=== PATIENT | female | born 1990 | race Caucasian/White ===

== ENCOUNTER → 2016-12-20 | Outpatient (CLI) | payer OTHER ==
[2016-05-12 21:30] VITALS: BP 124/64
[~2016-12-20] MED LIST: ACET500T33 PO; ALBU8.5H6 INH; GI COCKTAIL PO; HYDR-2666 PO; HYDR-2672 PO; HYDR-2678 PO; HYDR10TA2 PO; HYDR1TAB10 PO; IBUP-1007 PO; IBUP100O7 PO; IBUP200T77 PO; LEVO25TA4 PO; LEVO75TA5 PO; LEVO88TA4 PO; ONDA4TAB10 SL; ONDA4TAB7 PO; OXYC-244 PO; OXYC-323 PO; PANT40TA5 PO; PREN1TAB9 PO
--- NOTE | 2016-12-20 14:12 | KCIC ---
PROCEDURE Pelvic ultrasound dated 12/20/2016. HISTORY Pelvic pain. TECHNIQUE Transabdominal and transvaginal imaging performed. COMPARISON 09/02/2014. FINDINGS Uterus is surgically absent. No abnormality of the vaginal cuff. Right ovary measures 3.2 x 1.5 x 1.7 centimeter. There is a complex nodule at the right ovary with increased vascularity measuring 1.2 centimeter maximum dimension. There is also a simple appearing cyst that measures 1.5 centimeter maximum dimension. The left ovary is not identified and reportedly surgically absent. No free fluid. IMPRESSION - Complex cyst or mass at the right ovary measuring up to 1.2 centimeters in size, indeterminate. Follow up imaging may be warranted to ensure stability. - Additional collapsing cyst at the right ovary measuring 1.5 centimeters in size. - Status post hysterectomy and left oophorectomy. Electronically signed by: Nazario Sanchez (Dec 20, 2016 14:10:41)
== END | disposition home or self-care (01) ==
LOC: KCIC US 10:16
PROVIDERS: ATTEND Obstetrics & Gynecology
DX: N83.201 Unspecified ovarian cyst, right side (principal); Z90.710 Acquired absence of both cervix and uterus
CPT/HCPCS: 76830; 76856

== ENCOUNTER 2017-01-08 09:31 | Day surgery (SDC) | payer OTHER ==
[~2017-01-08] VITALS: Ht 157.5 cm; Wt 90.7 kg
[~2017-01-08 09:31] MED LIST changes: +BUPIVACAINE-EPI 0.25%-1:200000 MPF 30 ML VIAL. ONE; +DEXAMETHASONE SOD PHOS 20 MG/5 ML VIAL. ONE; +IV RINGERS,LACTATED 1000ML 1,000 ML IV SCH; +LIDOCAINE 1% 1 ML SYRINGE. ID PRN; +LIDOCAINE 2% 100 MG/5 ML SYRINGE. ONE; +MIDAZOLAM HCL/PF 2 MG/2 ML VIAL. ONE; +ONDANSETRON PF 4 MG/2 ML VIAL. IV PRN; +ONDANSETRON PF 4 MG/2 ML VIAL. ONE; +PROPOFOL 20 ML IV ONE; +ROCURONIUM 100 MG/10 ML VIAL. ONE; +SEVOFLURANE 61 TO 120 MINUTES. IH ONE; +SURGICEL HEMOSTAT 4X8 EACH. ONE; +fentaNYL PF VIAL 100 MCG/2 ML VIAL ONE
[2017-01-08] MEDS ORDERED: LIDOCAINE 2% 100 MG/5 ML SYRINGE. ONE (10:46)
[2017-01-08] MEDS ORDERED: GLYCOPYRROLATE 1 MG/5 ML VIAL. ONE (10:46)
[2017-01-08] MEDS ORDERED: NEOSTIGMINE METHYLSULFATE 5 MG/5 ML SYRINGE. ONE (10:46)
[2017-01-08] MEDS ORDERED: PHENYLEPHRINE in 0.9% NACL PF 1 MG/10 ML DISP.SYRIN. IV ONE (10:57)
--- NOTE | 2017-01-08 11:20 | PDOC ---
BRIEF OPERATIVE NOTE Pre-Op Diagnosis 1. Left adnexal mass 2. Chronic Pelvic pain Post-Op Diagnosis 1. ROV Cyst 2. Endometriosis Procedure Performed [facility] RSO and Resection of Endometriosis Surgeon Dr. Michaels Anesthesia Type: General Blood Loss 5 ml Specimens Obtained Right ovary and fallopian tube; Peritoneum biopsy of posterior culde sac Findings pelvic sidewall adhesions, ROV cyst, endometriosis posterior culde sac Complications none Additional Remarks pt. stable JESSICA MICHAELS Jr, MD January 08, 2017 11:20
--- NOTE | 2017-01-08 11:21 | DISCH ---
DISCHARGE INSTRUCTIONS Condition on Discharge Condition on Discharge: Stable Activity After Discharge Activity Instructions for Disc: Activity as tolerated Lifting Instructions after Dis: No heavy lifting Driving Instructions after Dis: Do not drive today Diet after Discharge Diet after Discharge: Regular Contacting the DRChad after DC Call your doctor for: Concerns you may have Follow-Up Follow up with: Dr. Michaels in 1 week. JESSICA MICHAELS Jr, MD January 08, 2017 11:21
[2017-01-08] MEDS ORDERED: OXYC-244 PO (11:29)
[2017-01-08] MEDS ORDERED: oxyCODONE/APAP 7.5/325 1 TAB TABLET PO ONE ×3 (11:45→12:30)
[2017-01-08] MEDS: fentaNYL PF VIAL 100 MCG/2 ML VIAL IV PRN ×4 (12:08→12:38)
[2017-01-08] MEDS: MORPHINE SULFATE 2 MG/ML DISP.SYRIN. IV PRN ×2 (12:08→12:16)
--- NOTE | 2017-01-08 12:24 | OP ---
DATE OF SURGERY: 01/08/2017 PREOPERATIVE DIAGNOSES: 1. Left adnexal mass. 2. Chronic pelvic pain. POSTOPERATIVE DIAGNOSES: 1. Right ovarian cyst. 2. Endometriosis. PROCEDURES: Laparoscopic right salpingo-oophorectomy and resection of endometriosis. SURGEON: Hi Michaels M.D. ANESTHESIA: GETA. ESTIMATED BLOOD LOSS: 5 mL. COMPLICATIONS: None. FINDINGS: 1. Right ovarian cyst. 2. Pelvic sidewall adhesions. 3. Endometriosis in the posterior cul-de-sac. SUMMARY: A 26-year-old female with history of chronic pelvic pain and sonogram indicated a left adnexal mass. The patient was counseled on risks, benefits, and expectations of performing laparoscopic right salpingo-oophorectomy and voiced clear understanding to proceed. DESCRIPTION OF PROCEDURE: The patient was taken to surgery suite and placed in dorsal lithotomy position. She was prepped with Betadine for vaginal prep and ChloraPrep for abdominal prep. After adequate anesthesia, moist sponge stick was placed vaginally. The abdomen was then visualized. Small transverse skin incision was made just below the umbilicus. The Veress needle was then placed through the infraumbilical incision site. The abdomen was allowed to insufflate up to 1-1/2 liters CO2 gas. The Veress needle was then removed, 5-mm trocar was placed. The scope was positioned. There were multiple pelvic sidewall adhesions, right ovary had a complex cyst of about 3 cm size, and left pelvic sidewall indicated more adhesions. Two incisions made in the left lower quadrant, at which a 5 mm and 11 mm port were placed with aid of graspers. The left pelvic area, where the adnexal mass was seen, a sonogram was evaluated and explored and appeared to have multiple adhesions, which were removed. There were other pelvic sidewall adhesions of the posterior cuff that were removed. There was an area of endometriosis on the posterior cul-de-sac, which was excised with the aid of EnSeal device. The right ovary and fallopian tube were then excised using the EnSeal device. Good hemostasis was maintained. A small amount of normal saline was left in the posterior cul-de-sac. The specimen was removed through the Endobag. The trocars were then removed under direct visualization. Abdomen was allowed to deflate as much as possible along with mechanical manipulation. The 11 mm port was reapproximated at the fascial layer using 2-0 Vicryl suture in a [id number] manner. The three skin incisions were reapproximated with 4-0 Vicryl suture in subcuticular manner. 0.25% Marcaine with epinephrine was injected at each incision site. The patient tolerated the procedure well. The moist sponge stick was removed. She was taken to recovery room in stable condition. Sponge and needle counts correct x 3. HI MICHAELS MD DR: SOPHIA/yaquelin JOB#: [id number] / [id number]
[2017-01-08] MEDS ORDERED: HYDROmorphone 2 MG/ML VIAL ONE (12:31)
[2017-01-08] MEDS: HYDROmorphone 2 MG/ML VIAL IV PRN ×3 (12:35→12:55)
[2017-01-08 13:10] VITALS: BP 122/74
--- NOTE | 2017-01-10 13:13 | PATHOLOGY ---
PATHOLOGY REPORT * * * * * * * * FINAL DIAGNOSIS: A. Fibroadipose tissue, peritoneal biopsy: - Focal fibrosis and coagulative changes. B. Ovary, right oophorectomy: - Cystic follicle with regressive changes and organizing hemorrhagic cyst. COMMENT: Sections of the peritoneal biopsy show focal fibrosis and coagulative changes. There is no evidence of endometriosis or malignancy. Sections of the ovary reveal a cystic follicle with regressive changes and organizing hemorrhagic cyst. There is no evidence of malignancy. No fallopian tube is identified. (JPM:; d/t: 01/10/17) REPORT ELECTRONICALLY SIGNED BY: Ugo Booth M.D. DATE/TIME: 01/10/2017 13:12 * * * * * * * * GROSS PATHOLOGY: A. The specimen is received in formalin labeled "Kameron Merlos, peritoneal biopsy". Received is a segment of pale restrepo, glistening to partially cauterized soft tissue measuring 0.8 x 0.6 x 0.4 cm in greatest dimensions. The specimen is submitted entirely in cassette A1. B. The specimen is received in formalin labeled "Kameron Merlos, right fallopian tube and ovary". Received is a 3 g ovary measuring 2.5 x 1.7 x 1.3 cm in greatest dimensions. The fallopian tube is not grossly identified. Sectioning reveals a unilocular cystic structure measuring 0.7 cm filled with blood coagulum. Remaining cut surfaces display pale restrepo, normal ovarian stroma. The specimen is submitted representatively in cassette B1. (CAA; 01/09/2017) INITIAL CPT CODE(S): A; 61052, 91558 Professional services performed by [facility] at [address] [address] Technical services performed by [facility] at [address] [place] [address], [facility] [address] [address]. SPECIMEN(S) RECEIVED: A.Peritoneal biopsy, posterior cul de sac B.Right tube and ovary CLINICAL HISTORY: Left adnexal mass PATIENT: KAMERON MERLOS /AGE: 5 1990 (Age: 26) PATIENT #: [id number] ALT CASE #: SPECIMEN COLLECTION DATE: 01/08/2017 SPECIMEN RECEIVED DATE: 01/08/2017 [facility] - [address] [place] [address] - PHONE: [phone] * * * END OF REPORT * * *
== END 2017-01-08 13:55 | disposition home or self-care (01) ==
LOC: SURG 09:31
PROVIDERS: ATTEND Obstetrics & Gynecology
DX: N83.291 Other ovarian cyst, right side (principal); N80.9 Endometriosis, unspecified; N73.6 Female pelvic peritoneal adhesions (postinfective); E78.00 Pure hypercholesterolemia, unspecified; J45.909 Unspecified asthma, uncomplicated; E66.9 Obesity, unspecified; Z90.49 Acquired absence of other specified parts of digestive tract; E03.9 Hypothyroidism, unspecified; F41.9 Anxiety disorder, unspecified; F32.9 Major depressive disorder, single episode, unspecified
CPT/HCPCS: 58661; 58662; 88305; A4215; C1782; J1100; J1170; J2060; J2250; J2270; J2370; J2405; J2704; J2710; J3010; J3490; J7030; J7120

== ENCOUNTER 2017-03-23 15:14 | Inpatient (IN) | payer OTHER ==
[~2017-03-23] VITALS: Ht 160 cm; Wt 90.7 kg
[~2017-03-23 15:14] MED LIST changes: -BUPIVACAINE-EPI 0.25%-1:200000 MPF 30 ML VIAL. ONE; -DEXAMETHASONE SOD PHOS 20 MG/5 ML VIAL. ONE; -HYDR-2666 PO; -HYDR-2672 PO; +HYDR-2758 PO; +HYDR-2766 PO; +IBUP100O24 PO; -IBUP100O7 PO; -IV RINGERS,LACTATED 1000ML 1,000 ML IV SCH; -LIDOCAINE 1% 1 ML SYRINGE. ID PRN; -LIDOCAINE 2% 100 MG/5 ML SYRINGE. ONE; -MIDAZOLAM HCL/PF 2 MG/2 ML VIAL. ONE; -ONDANSETRON PF 4 MG/2 ML VIAL. IV PRN; -ONDANSETRON PF 4 MG/2 ML VIAL. ONE; -OXYC-244 PO; +OXYC-327 PO; -PROPOFOL 20 ML IV ONE; -ROCURONIUM 100 MG/10 ML VIAL. ONE; -SEVOFLURANE 61 TO 120 MINUTES. IH ONE; -SURGICEL HEMOSTAT 4X8 EACH. ONE; -fentaNYL PF VIAL 100 MCG/2 ML VIAL ONE
[2017-03-23] MEDS ORDERED: ONDANSETRON PF 4 MG/2 ML VIAL. IV ONE (15:30)
[2017-03-23] MEDS ORDERED: 0.9 % SODIUM CHLORIDE 10 ML DISP.SYRIN. IV PRN (15:30)
[2017-03-23] MEDS ORDERED: IV NORMAL SALINE 1000ML BAG 1,000 ML IV SCH (15:30)
--- NOTE | 2017-03-23 15:38 | PHYS DOC ---
Past Medical History Past Medical History: Anxiety, Hypothyroid, Ovarian Cyst, Other Additional Past Medical Histor: " pelvic congestion" GERD Past Surgical History: Cholecystectomy, Hysterectomy, Oophorectomy Additional Past Surgical Histo: laparoscopy, NUMEROUS SURGERIES FOR OVARION CYSTS Alcohol Use: None Drug Use: None Adult General Chief Complaint Chief Complaint: ABDOMINAL PAIN HPI HPI This is a pleasant 27-year-old patient female who was seen at a [facility] yesterday in the ER she presented to the ER with increasing left lower quadrant abdominal pain. Patient has had a history of surgery to remove a cystic structure from her left Ovary by her CLIENT SERVICE MANAGER back in January 2017 patient been doing well until that time until 2 days ago she began having increasing "abdominal pain described as sharp and stabbing with radiation to the left flank. It is full and full of pressure causing some nausea and vomiting nonbilious nonbloody to me times to count. Patient describes no diarrhea, no UTI symptoms no vaginal bleeding or discharge. She does localized tenderness that is worse with direct pressure. She 's had some subjective fevers and chills with the symptoms. When she was seen at [facility] she complained of increased pain they can't completed a CAT scan of abdomen and pelvis. This demonstrated a significant cystic mass larger in size in the left lower quadrant. They advised her to follow-up with her OB/ DRY MAN in the next day for surgical evaluation. [facility] Review of Systems Review of Systems Constitutional: He describes some fevers and chills although thing measured. Eyes: Denies change in visual acuity, redness, or eye pain [] HENT: Denies nasal congestion or sore throat [] Respiratory: Denies cough or shortness of breath [] Cardiovascular: No additional information not addressed in HPI [] GI: Planes of left lower quadrant abdominal pain with nausea and vomiting with blood or bile, no bloody stools no constipation. : Denies dysuria or hematuria [] Musculoskeletal: Denies back pain or joint pain [] Integument: Denies rash or skin lesions [] Neurologic: Denies headache, focal weakness or sensory changes [] Endocrine: Denies polyuria or polydipsia [] Current Medications Current Medications Current Medications Medications (Trade) Dose Ordered Sig/Nargis Start Time Stop Time Status Last Admin Dose Admin Fentanyl Citrate (Fentanyl 2ml Vial) 50 mcg PRN Q2HR PRN 03/23/17 17:30 03/24/17 17:29 UNV Hydromorphone HCl (Dilaudid) 1 mg PRN Q15MIN PRN 03/23/17 15:30 03/24/17 15:29 03/23/17 16:53 1 MG Ondansetron HCl (Zofran) 4 mg PRN Q8HRS PRN 03/23/17 17:30 03/24/17 17:29 UNV Sodium Chloride 1,000 ml @ 100 mls/hr Q10H 03/23/17 17:22 03/24/17 17:21 UNV Sodium Chloride (Normal Saline Flush) 10 ml QSHIFT PRN 03/23/17 15:30 03/23/17 15:58 10 ML Allergies Allergies Allergies Coded Allergies Type Severity Reaction Last Updated Verified Iodine and Iodide Containing Produc Allergy Severe THROAT CLOSED UP 01/08/17 Yes Latex, Natural Rubber Allergy Intermediate RASH AND ITCHING 01/08/17 Yes adhesive Allergy Intermediate Rash FROM TAPE 01/08/17 Yes ketorolac Allergy Intermediate Itching 01/08/17 Yes tramadol Allergy Intermediate itchy rash, tolerates Morphine/Dilaudid/Lortab Yes cyclobenzaprine Adverse Reaction Mild IRRITABLE 01/08/17 Yes promethazine Adverse Reaction Mild fast heart rate 01/08/17 No Physical Exam Physical Exam Patient's vital signs within normal limits. Constitutional: Well developed, well nourished, patient is obese she is sent comfortable HENT: Normocephalic, atraumatic, bilateral external ears normal, oropharynx moist, no oral exudates, nose normal. [] Eyes: PERRLA, EOMI, conjunctiva normal, no discharge. [] Neck: Normal range of motion, no tenderness, supple, no stridor. [] Cardiovascular:Heart rate regular rhythm, no murmur [] Lungs & Thorax: Bilateral breath sounds clear to auscultation [] Abdomen: He has marked tenderness to palpation left lower quadrant with some fullness with voluntary guarding no rebound or organomegaly. Patient has no rebound or organomegaly. Skin: Warm, dry, no erythema, no rash. [] Back: No tenderness, no CVA tenderness. [] Extremities: No tenderness, no cyanosis, no clubbing, ROM intact, no edema. [] Neurologic: Alert and oriented X 3, normal motor function, normal sensory function, no focal deficits noted. [] Psychologic: Patient is mildly anxious but obviously in pain. Current Patient Data Vital Signs Vital Signs Date Time Temp Pulse Resp B/P (MAP) Pulse Ox O2 Delivery O2 Flow Rate FiO2 03/23/17 16:53 Room Air 03/23/17 16:31 69 107/61 (76) 97 03/23/17 15:20 98.4 18 98.4 Lab Values Laboratory Tests Test 03/23/17 14:46 03/23/17 15:30 03/23/17 15:50 POC Urine HCG, Qualitative Hcg negative (Negative) Urine Collection Type Unknown Urine Color Yellow Urine Clarity Clear Urine pH 7.0 Urine Specific [place] 1.020 Urine Protein Negative mg/dL (NEG-TRACE) Urine Glucose (UA) Negative mg/dL (NEG) Urine Ketones (Stick) Negative mg/dL (NEG) Urine Blood Negative (NEG) Urine Nitrite Negative (NEG) Urine Bilirubin Negative (NEG) Urine Urobilinogen Dipstick 0.2 mg/dL (0.2 mg/dL) Urine Leukocyte Esterase Negative (NEG) Urine RBC 0 /HPF (0-2) Urine WBC Occ /HPF (0-4) Urine Squamous Epithelial Cells Few /LPF Urine Bacteria 0 /HPF (0-FEW) Urine Mucus Mod /LPF White Blood Count 15.7 x10^3/uL (4.0-11.0) H Red Blood Count 4.61 x10^6/uL (3.50-5.40) Hemoglobin 13.4 g/dL (12.0-15.5) Hematocrit 40.7 % (36.0-47.0) Mean Corpuscular Volume 88 fL (79-100) Mean Corpuscular Hemoglobin 29 pg (25-35) Mean Corpuscular Hemoglobin Concent 33 g/dL (31-37) Red Cell Distribution Width 13.1 % (11.5-14.5) Platelet Count 329 x10^3/uL (140-400) Neutrophils (%) (Auto) 80 % (31-73) H Lymphocytes (%) (Auto) 12 % (24-48) L Monocytes (%) (Auto) 6 % (0-9) Eosinophils (%) (Auto) 1 % (0-3) Basophils (%) (Auto) 0 % (0-3) Neutrophils # (Auto) 12.6 x10^3uL (1.8-7.7) H Lymphocytes # (Auto) 1.9 x10^3/uL (1.0-4.8) Monocytes # (Auto) 1.0 x10^3/uL (0.0-1.1) Eosinophils # (Auto) 0.2 x10^3/uL (0.0-0.7) Basophils # (Auto) 0.1 x10^3/uL (0.0-0.2) Segmented Neutrophils % 79 % (35-66) H Lymphocytes % 11 % (24-48) L Monocytes % 9 % (0-10) Eosinophils % 1 % (0-5) Platelet Estimate Adequate (ADEQUATE) Sodium Level 144 mmol/L (136-145) Potassium Level 3.9 mmol/L (3.5-5.1) Chloride Level 105 mmol/L (98-107) Carbon Dioxide Level 29 mmol/L (21-32) Anion Gap 10 (6-14) Blood Urea Nitrogen 15 mg/dL (7-20) Creatinine 1.0 mg/dL (0.6-1.0) Estimated GFR (Cockcroft-Gault) 65.6 BUN/Creatinine Ratio 15 (6-20) Glucose Level 104 mg/dL (70-99) H Lactic Acid Level 1.1 mmol/L (0.4-2.0) Calcium Level 8.7 mg/dL (8.5-10.1) Total Bilirubin 0.4 mg/dL (0.2-1.0) Aspartate Amino Transferase (AST) 20 U/L (15-37) Alanine Aminotransferase (ALT) 29 U/L (14-59) Alkaline Phosphatase 72 U/L (46-116) Total Protein 7.8 g/dL (6.4-8.2) Albumin 3.9 g/dL (3.4-5.0) Albumin/Globulin Ratio 1.0 (1.0-1.7) Lipase 110 U/L (73-393) Laboratory Tests 03/23/17 15:50 Laboratory Tests 03/23/17 15:50 EKG EKG [] KG timed 3 6:57 PM 03/23/2017 demonstrates normal sinus rhythm with heart rate of 86 UT interval is normal in 1:30. QRS normal at 76. QTc is normal at 427. This is a normal EKG a mild left axis deviation no other abnormalities read by Dr. Sherman. Radiology/Procedures Radiology/Procedures [] CT scan completed at [facility] on 03/23/2017 demonstrates there is left hydroureter again seen is a left pelvic mass measuring 4.3 x 3.8 cm this is increased in size from the prior study in cause compression of the left ureter dizzy of the masses indeterminate range from anywhere from 12-20 Hounsfield units dizzy of the mass no bowel obstruction no. Pneumoperitoneum normal appendix no bulky adenopathy. This is a left adnexal mass is increased in size placing mass effect on the left ureter causing left hydroureter nephrosis. Course & Med Decision Making Course & Med Decision Making Pertinent Labs and Imaging studies reviewed. (See chart for details) arrival patient with left lower quadrant abdominal pain and a cystic mass found on CT scan from a CAT scan yesterday at assisted facility. We will attempt to get those results and Dr. CLIENT SERVICE MANAGER Dr. Michaels ammonia distiller, will attempt to her comfortable while we ensure that she is not today her urine is clear she will do CBC, urinalysis and CMP completed. She will receive IV fluids and pain medications. Returned CT of the pelvis completed early reviewed results at approximately 4: 15 PM Is now 4:50 PM blood cell count is returned elevated at 15,000, a negative test, negative urinalysis Is now 4:55 PM Patient tells me that their symptoms given during CC are improved. We reviewed labs and radiology reports with patient. Laboratory Tests Test 03/23/17 14:46 03/23/17 15:30 03/23/17 15:50 Bedside Urine HCG, Qualitative Hcg negative (Negative) Urine Collection Type Unknown Urine Color Yellow Urine Clarity Clear Urine pH 7.0 Urine Specific [place] 1.020 Urine Protein Negative mg/dL (NEG-TRACE) Urine Glucose (UA) Negative mg/dL (NEG) Urine Ketones (Stick) Negative mg/dL (NEG) Urine Blood Negative (NEG) Urine Nitrite Negative (NEG) Urine Bilirubin Negative (NEG) Urine Urobilinogen Dipstick 0.2 mg/dL (0.2 mg/dL) Urine Leukocyte Esterase Negative (NEG) Urine RBC 0 /HPF (0-2) Urine WBC Occ /HPF (0-4) Urine Squamous Epithelial Cells Few /LPF Urine Bacteria 0 /HPF (0-FEW) Urine Mucus Mod /LPF White Blood Count 15.7 x10^3/uL (4.0-11.0) Red Blood Count 4.61 x10^6/uL (3.50-5.40) Hemoglobin 13.4 g/dL (12.0-15.5) Hematocrit 40.7 % (36.0-47.0) Mean Corpuscular Volume 88 fL (79-100) Mean Corpuscular Hemoglobin 29 pg (25-35) Mean Corpuscular Hemoglobin Concent 33 g/dL (31-37) Red Cell Distribution Width 13.1 % (11.5-14.5) Platelet Count 329 x10^3/uL (140-400) Neutrophils (%) (Auto) 80 % (31-73) Lymphocytes (%) (Auto) 12 % (24-48) Monocytes (%) (Auto) 6 % (0-9) Eosinophils (%) (Auto) 1 % (0-3) Basophils (%) (Auto) 0 % (0-3) Neutrophils # (Auto) 12.6 x10^3uL (1.8-7.7) Lymphocytes # (Auto) 1.9 x10^3/uL (1.0-4.8) Monocytes # (Auto) 1.0 x10^3/uL (0.0-1.1) Eosinophils # (Auto) 0.2 x10^3/uL (0.0-0.7) Basophils # (Auto) 0.1 x10^3/uL (0.0-0.2) Segmented Neutrophils % 79 % (35-66) Lymphocytes % 11 % (24-48) Monocytes % 9 % (0-10) Eosinophils % 1 % (0-5) Platelet Estimate Adequate (ADEQUATE) Sodium Level 144 mmol/L (136-145) Chloride Level 105 mmol/L (98-107) Carbon Dioxide Level 29 mmol/L (21-32) Anion Gap 10 (6-14) Blood Urea Nitrogen 15 mg/dL (7-20) Estimated GFR (Cockcroft-Gault) 65.6 BUN/Creatinine Ratio 15 (6-20) Glucose Level 104 mg/dL (70-99) Lactic Acid Level 1.1 mmol/L (0.4-2.0) Calcium Level 8.7 mg/dL (8.5-10.1) Total Bilirubin 0.4 mg/dL (0.2-1.0) Aspartate Amino Transf (AST/SGOT) 20 U/L (15-37) Alkaline Phosphatase 72 U/L (46-116) Total Protein 7.8 g/dL (6.4-8.2) Albumin 3.9 g/dL (3.4-5.0) Albumin/Globulin Ratio 1.0 (1.0-1.7) Lipase 110 U/L (73-393) [] My consult note: called OB at 4:55 pm returned call at 4:[address] Michaels he and I discussed the case with me and he was adamant that he did remove the tube and ovary on the left side and that this should not be an adnexal mass. The differential diagnosis still at includes but not limited to an abscess, ovarian mass or perhaps retained foreign body. He advised that I talked to general surgery about this patient case and get their opinion about the matter. Sales Officer note: Gen. investigative analyst called at of the service service: 5 PM Consult called back at 5:02 pm Discussed the case I presented and they agreed with admission. he asked for Dr. Michaels to call him so that they could discuss this case. Dr. Bob called back at 5:10 and encouraged me to admit this patient to the hospitalist group and that he and Dr. Michaels would would out a good treatment plan for this patient. Sales Officer note: internal medicine Dr. Glynn Sales Officer called at of the service 5:18 pm Consult called back at 5:25 pm Discussed the case I presented and they agreed with admission. Time of acceptance 5:25 Discussed plan with family at the bedside. She is feeling markedly better with the IV fluids pain medications at this time and she understands she'll be admitted to the hospital to be evaluated by general surgery and possibly CLIENT SERVICE MANAGER to determine the past related to evaluate this particular cystic mass within her pelvis is causing her pain, fevers and increased white count. Dragon Disclaimer Dragon Disclaimer This electronic medical record was generated, in whole or in part, using a voice recognition dictation system. Departure Departure Impression: Primary Impression: Abdominal pain, left lower quadrant Additional Impressions: Intraabdominal mass Leukocytosis Disposition: 09 ADMITTED INPATIENT Admitting Physician: Other Condition: GUARDED Referrals: COURTNEY PAULA MD (PCP) Problem Qualifiers PATRICIA SHERMAN MD Mar 23, 2017 15:38
[2017-03-23 15:48] LABS: BILIRUBIN,URINE NEGATIVE (NEG); GLUCOSE,URINE NEGATIVE (NEG); NITRITE,URINE NEGATIVE (NEG); PROTEIN,URINE NEGATIVE (NEG-TRACE); UROBILINOGEN,URINE 0.2 mg/dL (0.2 mg/dL)
[2017-03-23] MEDS: HYDROmorphone 2 MG/ML VIAL IV/SQ PRN ×5 (15:59→21:55)
[2017-03-23 16:04] LABS: BASO # 0.1 x10^3/uL (0.0-0.2); BASO % 0 % (0-3); EOS % 1 % (0-3); HEMATOCRIT 40.7 % (36.0-47.0); HEMOGLOBIN 13.4 g/dL (12.0-15.5); LYMPH # 1.9 x10^3/uL (1.0-4.8); LYMPH % 12 % (24-48); MEAN CORPUSCULAR HEMOGLOBIN 29 pg (25-35); MEAN CORPUSCULAR HGB CONC 33 g/dL (31-37); MEAN CORPUSCULAR VOLUME 88 fL (79-100); MONO % 6 % (0-9); NEUT % 80 % (31-73); PLATELET COUNT 329 x10^3/uL (140-400); RED BLOOD COUNT 4.61 x10^6/uL (3.50-5.40); RED CELL DISTRIBUTION WIDTH 13.1 % (11.5-14.5); WHITE BLOOD COUNT 15.7 x10^3/uL (4.0-11.0)
[2017-03-23 16:05] LABS: BACTERIA,URINE 0 /HPF (0-FEW); RBC,URINE 0 /HPF (0-2); SQUAMOUS EPITHELIAL CELL,UR FEW /LPF; WBC,URINE OCC /HPF (0-4)
--- NOTE | 2017-03-23 16:07 | EKG ---
[facility] [address] [place] [address] Test Date: 2017-03-23 Test Time: 15:57:25 Pat Name: KAMERON DRISCOLL Department: Room: Gender: F Dianetic Counselor: : 1990 Requested By: PATRICIA SHERMAN Order Number: [id number] Reading MD: Jamie Levin Measurements Intervals [place] Rate: 86 P: 44 MA: 130 QRS: -6 QRSD: 76 T: 10 QT: 354 QTc: 427 Interpretive Statements SINUS RHYTHM LEFTWARD AXIS Electronically Signed On 04-01-2017 14:52:00 CDT by Jamie Levin
[2017-03-23 16:22] LABS: CALCIUM 8.7 mg/dL (8.5-10.1); GFR 65.6; POTASSIUM 3.9 mmol/L (3.5-5.1)
[2017-03-23 16:28] LABS: ALBUMIN 3.9 g/dL (3.4-5.0); TOTAL BILIRUBIN 0.4 mg/dL (0.2-1.0); TOTAL PROTEIN 7.8 g/dL (6.4-8.2)
[2017-03-23 16:33] LABS: % EOS 1 % (0-5)
[2017-03-23 16:34] LABS: PLT ESTIMATE ADEQUATE (ADEQUATE)
[2017-03-23] MEDS ORDERED: fentaNYL PF VIAL 100 MCG/2 ML VIAL IV PRN (17:30)
[2017-03-23] MEDS: IV NORMAL SALINE 1000ML BAG 1,000 ML IV SCH (18:45)
[2017-03-23] MEDS: ONDANSETRON PF 4 MG/2 ML VIAL. IV PRN (20:17)
--- NOTE | 2017-03-23 21:15 | PDOC2 ---
CONSULT Date of Consult Date of Consult DATE: 03/23/17 TIME: 18:00 Past Medical History Cardiovascular: No pertinent hx Pulmonary: No pertinent hx, Other CENTRAL NERVOUS SYSTEM: Carpal Tunnel Syndrome GI: GERD Heme/Onc: No pertinent hx Hepatobiliary: Cholelithiasis Psych: No pertinent hx Musculoskeletal: No pain Rheumatologic: No pertinent hx Infectious disease: No pertinent hx Renal/: No pertinent hx Endocrine: Hypothyroidism, Other Past Surgical History Past Surgical History: Cholecystectomy, Tubal Ligation, Hysterectomy Family History Family History: Cancer, Diabetes, Other Social History ALCOHOL: none Drugs: None Current Problem List Problem List Problems Medical Problems: (1) Abdominal pain, left lower quadrant Status: Acute (2) Intraabdominal mass Status: Acute (3) Leukocytosis Status: Acute Current Medications Current Medications Current Medications Hydromorphone HCl (Dilaudid) 1 mg PRN Q15MIN PRN IV/SQ PAIN GREATER THAN 3/10 Last administered on 03/23/17 17:32; Start 03/23/17 at 15:30; Stop 03/23/17 at 20:00; Status DC Sodium Chloride 1,000 ml @ 1,000 mls/hr Q1H IV Last administered on 03/23/17 15:58; Start 03/23/17 at 15:30; Stop 03/23/17 at 16:29; Status DC Sodium Chloride (Normal Saline Flush) 10 ml QSHIFT PRN IV AFTER MEDS AND BLOOD DRAWS Last administered on 03/23/17 15:58; Start 03/23/17 at 15:30 Ondansetron HCl (Zofran) 4 mg 1X ONCE IV Last administered on 03/23/17 15:58 ; Start 03/23/17 at 15:30; Stop 03/23/17 at 15:33; Status DC Ondansetron HCl (Zofran) 4 mg PRN Q8HRS PRN IV NAUSEA/VOMITING Last administered on 03/23/17 20:17; Start 03/23/17 at 17:30; Stop 03/24/17 at 17:29 Fentanyl Citrate (Fentanyl 2ml Vial) 50 mcg PRN Q2HR PRN IV PAIN Last administered on 03/23/17 18:37; Start 03/23/17 at 17:30; Stop 03/23/17 at 20:00 ; Status DC Sodium Chloride 1,000 ml @ 100 mls/hr Q10H IV Last administered on 03/23/17t 18:45; Start 03/23/17 at 17:30; Stop 03/24/17 at 17:29 Hydromorphone HCl (Dilaudid) 1 mg PRN Q1HR PRN IV/SQ PAIN GREATER THAN 4/10 Last administered on 03/23/17t 20:11; Start 03/23/17 at 20:00; Stop 03/24/17 at 19:59 Piperacillin Sod/ Tazobactam Sod 3.375 gm/Sodium Chloride 50 ml @ 100 mls/hr Q6HRS IV ; Start 03/23/17 at 20:30 Albuterol Sulfate (Ventolin Hfa) 2 puff Q4HRS INH ; Start 03/24/17 at 00:00; Status UNV Levothyroxine Sodium (Synthroid) 25 mcg DAILYAC PO ; Start 03/24/17 at 07:30 Albuterol Sulfate (Ventolin Neb Soln) 2.5 mg Q4HRS W/A NEB ; Start 03/23/17 at 22:00 Active Scripts Active Reported Percocet 7.5-325 Mg Tablet (Oxycodone/Acetaminophen) 1 Each Tablet 1-2 Tab PO Q4HRS Levothyroxine Sodium 25 Mcg Tablet 25 Mcg PO DAILYAC Albuterol Sulfate Hfa Inhaler (Albuterol Sulfate) 8.5 Gm Hfa.aer.ad 2 Puff INH Q4HRS Zofran (Ondansetron Hcl) 4 Mg Tablet 1 Tab PO Q6HRS Allergies Allergies: Coded Allergies: Iodine and Iodide Containing Produc (Verified Allergy, Severe, THROAT CLOSED UP, 01/08/17) Latex, Natural Rubber (Verified Allergy, Intermediate, RASH AND ITCHING, ) adhesive (Verified Allergy, Intermediate, Rash FROM TAPE, 01/08/17) ketorolac (Verified Allergy, Intermediate, Itching, 01/08/17) tramadol (Verified Allergy, Intermediate, itchy rash, tolerates Morphine/ Dilaudid/Lortab, 01/08/17) cyclobenzaprine (Verified Adverse Reaction, Mild, IRRITABLE, 01/08/17) promethazine (Unverified Adverse Reaction, Mild, fast heart rate, 01/08/17) Vitals VITALS Vital Signs Date Time Temp Pulse Resp B/P (MAP) Pulse Ox O2 Delivery O2 Flow Rate FiO2 03/23/17 20:11 18 94 Room Air 03/23/17 18:02 63 113/67 (82) 03/23/17 15:20 98.4 98.4 Labs Labs Laboratory Tests Test 03/23/17 14:46 03/23/17 15:30 03/23/17 15:50 Bedside Urine HCG, Qualitative Hcg negative (Negative) Urine Collection Type Unknown Urine Color Yellow Urine Clarity Clear Urine pH 7.0 Urine Specific [place] 1.020 Urine Protein Negative mg/dL (NEG-TRACE) Urine Glucose (UA) Negative mg/dL (NEG) Urine Ketones (Stick) Negative mg/dL (NEG) Urine Blood Negative (NEG) Urine Nitrite Negative (NEG) Urine Bilirubin Negative (NEG) Urine Urobilinogen Dipstick 0.2 mg/dL (0.2 mg/dL) Urine Leukocyte Esterase Negative (NEG) Urine RBC 0 /HPF (0-2) Urine WBC Occ /HPF (0-4) Urine Squamous Epithelial Cells Few /LPF Urine Bacteria 0 /HPF (0-FEW) Urine Mucus Mod /LPF White Blood Count 15.7 x10^3/uL (4.0-11.0) Red Blood Count 4.61 x10^6/uL (3.50-5.40) Hemoglobin 13.4 g/dL (12.0-15.5) Hematocrit 40.7 % (36.0-47.0) Mean Corpuscular Volume 88 fL (79-100) Mean Corpuscular Hemoglobin 29 pg (25-35) Mean Corpuscular Hemoglobin Concent 33 g/dL (31-37) Red Cell Distribution Width 13.1 % (11.5-14.5) Platelet Count 329 x10^3/uL (140-400) Neutrophils (%) (Auto) 80 % (31-73) Lymphocytes (%) (Auto) 12 % (24-48) Monocytes (%) (Auto) 6 % (0-9) Eosinophils (%) (Auto) 1 % (0-3) Basophils (%) (Auto) 0 % (0-3) Neutrophils # (Auto) 12.6 x10^3uL (1.8-7.7) Lymphocytes # (Auto) 1.9 x10^3/uL (1.0-4.8) Monocytes # (Auto) 1.0 x10^3/uL (0.0-1.1) Eosinophils # (Auto) 0.2 x10^3/uL (0.0-0.7) Basophils # (Auto) 0.1 x10^3/uL (0.0-0.2) Segmented Neutrophils % 79 % (35-66) Lymphocytes % 11 % (24-48) Monocytes % 9 % (0-10) Eosinophils % 1 % (0-5) Platelet Estimate Adequate (ADEQUATE) Sodium Level 144 mmol/L (136-145) Potassium Level 3.9 mmol/L (3.5-5.1) Chloride Level 105 mmol/L (98-107) Carbon Dioxide Level 29 mmol/L (21-32) Anion Gap 10 (6-14) Blood Urea Nitrogen 15 mg/dL (7-20) Creatinine 1.0 mg/dL (0.6-1.0) Estimated GFR (Cockcroft-Gault) 65.6 BUN/Creatinine Ratio 15 (6-20) Glucose Level 104 mg/dL (70-99) Lactic Acid Level 1.1 mmol/L (0.4-2.0) Calcium Level 8.7 mg/dL (8.5-10.1) Total Bilirubin 0.4 mg/dL (0.2-1.0) Aspartate Amino Transf (AST/SGOT) 20 U/L (15-37) Alanine Aminotransferase (ALT/SGPT) 29 U/L (14-59) Alkaline Phosphatase 72 U/L (46-116) Total Protein 7.8 g/dL (6.4-8.2) Albumin 3.9 g/dL (3.4-5.0) Albumin/Globulin Ratio 1.0 (1.0-1.7) Lipase 110 U/L (73-393) Laboratory Tests Test 03/23/17 14:46 03/23/17 15:30 03/23/17 15:50 Bedside Urine HCG, Qualitative Hcg negative (Negative) Urine Collection Type Unknown Urine Color Yellow Urine Clarity Clear Urine pH 7.0 Urine Specific [place] 1.020 Urine Protein Negative mg/dL (NEG-TRACE) Urine Glucose (UA) Negative mg/dL (NEG) Urine Ketones (Stick) Negative mg/dL (NEG) Urine Blood Negative (NEG) Urine Nitrite Negative (NEG) Urine Bilirubin Negative (NEG) Urine Urobilinogen Dipstick 0.2 mg/dL (0.2 mg/dL) Urine Leukocyte Esterase Negative (NEG) Urine RBC 0 /HPF (0-2) Urine WBC Occ /HPF (0-4) Urine Squamous Epithelial Cells Few /LPF Urine Bacteria 0 /HPF (0-FEW) Urine Mucus Mod /LPF White Blood Count 15.7 x10^3/uL (4.0-11.0) Red Blood Count 4.61 x10^6/uL (3.50-5.40) Hemoglobin 13.4 g/dL (12.0-15.5) Hematocrit 40.7 % (36.0-47.0) Mean Corpuscular Volume 88 fL (79-100) Mean Corpuscular Hemoglobin 29 pg (25-35) Mean Corpuscular Hemoglobin Concent 33 g/dL (31-37) Red Cell Distribution Width 13.1 % (11.5-14.5) Platelet Count 329 x10^3/uL (140-400) Neutrophils (%) (Auto) 80 % (31-73) Lymphocytes (%) (Auto) 12 % (24-48) Monocytes (%) (Auto) 6 % (0-9) Eosinophils (%) (Auto) 1 % (0-3) Basophils (%) (Auto) 0 % (0-3) Neutrophils # (Auto) 12.6 x10^3uL (1.8-7.7) Lymphocytes # (Auto) 1.9 x10^3/uL (1.0-4.8) Monocytes # (Auto) 1.0 x10^3/uL (0.0-1.1) Eosinophils # (Auto) 0.2 x10^3/uL (0.0-0.7) Basophils # (Auto) 0.1 x10^3/uL (0.0-0.2) Segmented Neutrophils % 79 % (35-66) Lymphocytes % 11 % (24-48) Monocytes % 9 % (0-10) Eosinophils % 1 % (0-5) Platelet Estimate Adequate (ADEQUATE) Sodium Level 144 mmol/L (136-145) Potassium Level 3.9 mmol/L (3.5-5.1) Chloride Level 105 mmol/L (98-107) Carbon Dioxide Level 29 mmol/L (21-32) Anion Gap 10 (6-14) Blood Urea Nitrogen 15 mg/dL (7-20) Creatinine 1.0 mg/dL (0.6-1.0) Estimated GFR (Cockcroft-Gault) 65.6 BUN/Creatinine Ratio 15 (6-20) Glucose Level 104 mg/dL (70-99) Lactic Acid Level 1.1 mmol/L (0.4-2.0) Calcium Level 8.7 mg/dL (8.5-10.1) Total Bilirubin 0.4 mg/dL (0.2-1.0) Aspartate Amino Transf (AST/SGOT) 20 U/L (15-37) Alanine Aminotransferase (ALT/SGPT) 29 U/L (14-59) Alkaline Phosphatase 72 U/L (46-116) Total Protein 7.8 g/dL (6.4-8.2) Albumin 3.9 g/dL (3.4-5.0) Albumin/Globulin Ratio 1.0 (1.0-1.7) Lipase 110 U/L (73-393) Assessment/Plan Assessment/Plan FND Wk # [id number] LLQ pain with mass by CT at [facility] no acute surgical need review scans with IR when available will follow Thanks for consult SAW AMADOR MD Mar 23, 2017 21:15
--- NOTE | 2017-03-23 21:31 | HP ---
ADMIT DATE: 03/23/2017 CHIEF COMPLAINT: Pelvic pain. HISTORY OF PRESENT ILLNESS: The patient is a 27-year-old woman with past medical history of polycystic ovarian disease, status post second oophorectomy [address] Michaels. She relates that yesterday she started having severe pain in her pelvis had fevers up to 100.9, feeling miserable. Denies any dysuria. Denies any nausea, vomiting or diarrhea. She decided to present to the Emergency Room. In the ER, a pelvic ultrasound revealed a complex cyst or mass at the right ovary, measuring 1.2 cm in size indeterminate additional collapsing cyst in the right ovary, measuring 1.5 in size, right ovary is still present (The patient is apparently malinformed about her type of surgery). Left ovary is not identified and reportedly surgically absent. PAST MEDICAL HISTORY: Polycystic ovary disease and hypothyroidism. FAMILY HISTORY: No PATIENT FINANCIAL COORDINATOR issues. No other prevalent disorders known. SOCIAL HISTORY: She is and lives with her family. Quit smoking 4 years ago. No toxic habits. ALLERGIES: IODINE, LATEX, RUBBER, CYCLOBENZAPRINE, KETOROLAC, PROMETHAZINE AND TRAMADOL. MEDICATIONS: Reconciled with MAR. REVIEW OF SYSTEMS: The patient with severe pelvic pain, unable to lie or stand still. Denies any other symptoms in rest of organ system review. PHYSICAL EXAMINATION: VITAL SIGNS: Show blood pressure of 113/67, heart rate of 63, respiratory rate at 16, afebrile. GENERAL: This is a morbidly obese 27-year-old woman, alert and oriented, in moderate distress. HEENT: Shows no scleral icterus. NECK: Supple. LUNGS: Fairly clear. HEART: Has regular rate and rhythm. ABDOMEN: Has positive bowel sounds, soft, tenderness to palpation in bilateral pelvis. EXTREMITIES: Show no edema. SKIN: Warm, soft and dry. LABORATORY DATA: CBC with a WBC of 15.7, neutrophils 80%, hemoglobin at 13.4, platelets at 329. Chemistries with a BUN and creatinine of 15 and 1.0, normal electrolytes, normal LFTs, normal lipase. Urine without bacteria. IMAGING STUDIES: Ultrasound of the pelvis as above. ASSESSMENT AND PLAN: The patient is a 27-year-old woman with recent cyst removal from her right ovary (vs R oophorectomy and subsequent abscess). Some cysts once again noticed in the area. Dr. Michaels as well as General Surgery has been consulted on the case. Given her fevers yesterday, will cover her with broad spectrum antibiotics and started Zosyn. Pain medication in form of Dilaudid have been made available to her. We will keep her n.p.o. for the time being, she is on IV fluids. JOSE BOSWELL MD DR: GOVIND/nts JOB#: [id number] / [id number] BRITT
[2017-03-23] MEDS ORDERED: PROCHLORPERAZINE 10 MG/2 ML VIAL. IV PRN (22:15)
[2017-03-23 23:00] VITALS: BP 136/84
[2017-03-23] MEDS: PIPERACILLIN/TAZOBACTAM 3.375 GM in IV NORMAL SALINE 50ML 50 ML IV SCH (23:00)
[2017-03-24] MEDS ORDERED: ALBUTEROL SULFATE 8GM INHALER. INH SCH
[2017-03-24] MEDS: HYDROmorphone 2 MG/ML VIAL IV PRN ×7 (00:01→14:16)
[2017-03-24] MEDS: ALBUTEROL SULFATE 2.5 MG/3 ML NEBU. NEB SCH ×4 (00:13→14:57)
[2017-03-24 00:17] VITALS: BP 113/67
[2017-03-24] MEDS: PIPERACILLIN/TAZOBACTAM 3.375 GM in IV NORMAL SALINE 50ML 50 ML IV SCH ×3 (01:07→11:54)
[2017-03-24 03:00] VITALS: BP 117/89
--- NOTE | 2017-03-24 03:32 | CONS ---
DATE OF CONSULTATION: 03/23/2017 SUBJECTIVE: The patient is a 27-year-old female who I was asked to see for left lower quadrant abdominal pain. I saw her in room 21 in the Emergency Department at [place]. Review of her chart, discussion with the ER physician, and interview with the patient reveals that she has had issues with left-sided abdominal pain in the past. In January of this year she underwent laparoscopic right salpingo-oophorectomy to complete her previous hysterectomy with left salpingo-oophorectomy. She states for a time after that surgery in January she felt better; however, over the last few days she had recurrent left lower quadrant abdominal pain, which she describes as "feels like someone stabbing me." She was taken by a friend to the ER at [facility] where a CT scan revealed a left side of mass slightly larger than the same mass, same location seen in January of this year. This is creating some hydroureter on the left. I spoke with Dr. Michaels earlier and he did not appreciate any type of mass at laparoscopy, which was done in January to remove her remaining right tube and ovary. PAST MEDICAL HISTORY: Medically history of hypothyroidism, anxiety, "pelvic congestion," GERD. PAST SURGICAL HISTORY: Includes cholecystectomy, hysterectomy with left salpingo-oophorectomy, right salpingo-oophorectomy. She has had multiple previous laparoscopies for ablation of the endometriosis. ALLERGIES: SHE IS ALLERGIC TO IODINE-CONTAINING PRODUCTS, LATEX, NATURAL RUBBER, ADHESIVE TAPE, TORADOL, TRAMADOL, PROMETHAZINE, AND CYCLOBENZAPRINE. ROUTINE MEDICATIONS: Listed on the reconciliation sheet. SOCIAL HISTORY: She is a nonsmoker who does not routinely use alcohol. FAMILY HISTORY: Noncontributory to this illness. REVIEW OF SYSTEMS: GENERAL: Subjectively has had fever and chills at home. HEENT: No sore throat or earaches. RESPIRATORY: No cough or wheezing. CARDIOVASCULAR: Denies chest pain or palpitations. GASTROINTESTINAL: See history of present illness. GENITOURINARY: No increased frequency or dysuria. NEUROLOGIC: Denies recent visual changes or headaches. OBJECTIVE: GENERAL: Physical exam reveals mildly obese female who describes stabbing pain; however, does not appear acutely in distress. Two small children at the bedside. HEENT: Normocephalic. EOMs intact. NECK: Supple. LUNGS: Normal respiratory rate and exchange. CARDIAC: Regular rate and rhythm. BREASTS: Deferred. ABDOMEN: Obese, soft, minimally tender to palpation in the left lower quadrant. PELVIC AND RECTAL: Exam is deferred. EXTREMITIES: Showed no gross skeletal abnormalities. NEUROLOGIC: She is grossly intact. ADMISSION LABORATORY DATA: At this hospitalization shows a white count of 15,700 (it was 13,500 at [facility] 2 days ago). Chemistries are unremarkable. Lactic acid 1.1. Urinalysis unremarkable. IMPRESSION: 1. Recent exacerbation of left lower quadrant abdominal pain with a report of a CT scan from [facility] done 2 days ago compared with a CT scan report from [facility] in January of this year prior to her laparoscopic surgery demonstrates a left-sided mass of uncertain characteristics. 2. Anxiety. 3. Hypothyroidism. 4. History of ____. PLAN: The patient is to be admitted for fluids, pain control, serial exams. We will try to obtain scans from [facility] for further assessment since we have no current scan here at [facility]. Do not feel she has an urgent surgical indication since from reading the CT scan report from [facility] 2 days ago compared to the scan at [facility] in January this has been ongoing process. Thank you for asking us to see the patient and participate in her care. We will follow her with you during her hospitalization. SAW AMADOR MD DR: GIOVANNI/yaquelin JOB#: [id number] / [id number]
[2017-03-24] MEDS ORDERED: HYDROmorphone 2 MG/ML VIAL IM ONE (04:30)
--- NOTE | 2017-03-24 05:39 | ACF ---
Admission Forms Criteria ABDOMINAL PAIN Clinical Indications for Admission to Inpatient Care (Place 'X' for any and all applicable criteria): Admission is indicated for ANY ONE of the following(1)(2)(3)(4)(5): [X]I. Inpatient admission required rather than observation care (Also use Abdominal Pain: Observation Care, as appropriate) because of ANY ONE of the following: [ ]a) Severe pain requiring acute inpatient management [X]b) Identification of etiology/finding that requires inpatient care (eg, aortic dissection, free air) [ ]c) Absent bowel sounds with complete ileus(6) [ ]d) Suspected toxic megacolon [ ]e) Severe electrolyte abnormalities requiring inpatient care [ ]f) High fever or infection requiring inpatient admission as indicated by ANY ONE of following(7)(8): [ ] i) Appropriate outpatient or observational care antimicrobial treatment unavailable, not effective, or not feasible [ ] ii) Documented bacteremia [ ] iii) Temperature > 104.9 degrees F (oral) [ ] iv) T >103.1 F (oral) or < 96.8 F(rectal) that does not respond to all emergency treatment measures [ ]g) Signs of intestinal obstruction [B] [ ]h) Hemodynamic instability [ ]i) IV fluid to replace significant ongoing losses (greater than 3 L/m2 per day) (12)(13) [ ]j) Percutaneous or open drainage (eg, abscess, biliary tract ) procedures [ ]k) Parenteral nutrition regimen that must be implemented on inpatient basis [ ]l) Other condition,treatment or monitoring requiring inpatient admission. [ ]II. Peritoneal signs present [ ]III. Surgery needed that cannot be performed on an ambulatory basis. [ ]IV. Evaluation requires patient to not eat or drink for extended period ( eg, more than 24 hours). [ ]V. Contraindications and/or Inappropriate clinical situations for Observational Care in patients with abdominal pain, when ANY ONE of the following is required: [ ]a) Thorough evaluation is required to prevent catastrophic events due to delays in diagnosing (e.g.Mesenteric ischemia) 1,3 [ ]b) Patient with severe pathology or with chronic symptoms unlikely to improve in the ED stay (3) [ ]. General contraindications and/or Inappropriate clinical situations for Observational Care in patients with abdominal pain, when ANY ONE of the following is required: [ ]a) Prediction of prolongation of LOS based on ANY ONE of the following may be considered as a contraindication for observational care 2, 3, 4, 5, 6, 7, 8, 9, 10, 11 [ ]i) Age > 65 yrs. [ ]ii) Patient arriving by ambulance [ ]iii) Patient with high acuity [ ]iv) Patient requiring vital sign monitoring [ ]v) Patient on IV medication [ ]b) Systolic blood pressures 180mmHg 3,12 [ ]c) Patient with altered mental status including delirium and other alteration of consciousness, (3) [ ]d) Patient whose discharge disposition will be to a senior care home or rehabilitation home should not be managed in Emergency Department Observation Unit. CMS rule requires 3 days hospital stay before such placement.3,13 [ ]e) Patient with failure to thrive due to broad array of etiologies 3,16,17 [ ]f) Inability to ambulate 3,14 Extended stay beyond goal length of stay may be needed for(2)(3): [ ]a) Persistent abdominal pain with suspected intra-abdominal process [ ]b) Diagnosed condition requiring continued stay (e.g., pancreatitis, complicated diverticulitis) [ ]c) Surgery (e.g., colectomy) The original [facility], [facility]1983[employer] content created by [employer] has been revised. The portions of the content which have been revised are identified through the use of italic text or in bold, and [facility] [employer] has neither reviewed nor approved the modified material.All other unmodified content is copyright [facility], 1928–1983[employer]. Please see references footnoted in the original [facility], [facility]–1983[employer] edition 2016 Admission Criteria Met?: Yes ROSA RASCON Mar 24, 2017 05:38
[2017-03-24 06:04] LABS: BASO # 0.1 x10^3/uL (0.0-0.2); BASO % 0 % (0-3); EOS % 1 % (0-3); HEMATOCRIT 36.8 % (36.0-47.0); HEMOGLOBIN 12.1 g/dL (12.0-15.5); LYMPH % 14 % (24-48); MEAN CORPUSCULAR HEMOGLOBIN 29 pg (25-35); MEAN CORPUSCULAR HGB CONC 33 g/dL (31-37); MEAN CORPUSCULAR VOLUME 89 fL (79-100); MONO % 8 % (0-9); NEUT % 76 % (31-73); PLATELET COUNT 279 x10^3/uL (140-400); RED BLOOD COUNT 4.13 x10^6/uL (3.50-5.40); WHITE BLOOD COUNT 14.1 x10^3/uL (4.0-11.0)
[2017-03-24 06:34] LABS: CREATININE 1.1 mg/dL (0.6-1.0); GFR 58.7; POTASSIUM 3.7 mmol/L (3.5-5.1)
[2017-03-24 07:00] VITALS: BP_SYST 96; BP_SYST 99; BP_DIAS 54; BP_DIAS 57
[2017-03-24] MEDS ORDERED: LEVOTHYROXINE 25 MCG TABLET. PO SCH (07:30)
[2017-03-24] MEDS: IV NORMAL SALINE 1000ML BAG 1,000 ML IV SCH ×2 (08:31→13:30)
[2017-03-24] MEDS: ONDANSETRON PF 4 MG/2 ML VIAL. IV PRN (08:58)
[2017-03-24 10:56] VITALS: BP 120/63
--- NOTE | 2017-03-24 11:06 | PDOC ---
PROGRESS NOTES Chief Complaint Chief Complaint leukocytosis pelvic pain hydronephrosis on CT scan History of Present Illness History of Present Illness pain persists, she is ambulatory, but uncomfortable CT scan completed at [facility] on 03/23/2017 demonstrates there is left hydroureter again seen is a left pelvic mass measuring 4.3 x 3.8 cm this is increased in size from the prior study in cause compression of the left ureter dizzy of the masses indeterminate range from anywhere from 12-20 Hounsfield units dizzy of the mass no bowel obstruction no. Pneumoperitoneum normal appendix no bulky adenopathy. This is a left adnexal mass is increased in size placing mass effect on the left ureter causing left hydroureter nephrosis. Vitals Vitals Vital Signs Date Time Temp Pulse Resp B/P (MAP) Pulse Ox O2 Delivery O2 Flow Rate FiO2 03/24/17 07:29 Room Air 03/24/17 07:00 96/57 (70) 03/24/17 07:00 98.2 59 19 97 98.2 Physical Exam General: Alert, Oriented X3, Cooperative Heart: Regular rate Lungs: Clear Abdomen: Normal bowel sounds Extremities: No clubbing Skin: No breakdown Labs LABS Laboratory Tests Test 03/23/17 14:46 03/23/17 15:30 03/23/17 15:50 03/24/17 05:20 Bedside Urine HCG, Qualitative Hcg negative (Negative) Urine Collection Type Unknown Urine Color Yellow Urine Clarity Clear Urine pH 7.0 Urine Specific [place] 1.020 Urine Protein Negative mg/dL (NEG-TRACE) Urine Glucose (UA) Negative mg/dL (NEG) Urine Ketones (Stick) Negative mg/dL (NEG) Urine Blood Negative (NEG) Urine Nitrite Negative (NEG) Urine Bilirubin Negative (NEG) Urine Urobilinogen Dipstick 0.2 mg/dL (0.2 mg/dL) Urine Leukocyte Esterase Negative (NEG) Urine RBC 0 /HPF (0-2) Urine WBC Occ /HPF (0-4) Urine Squamous Epithelial Cells Few /LPF Urine Bacteria 0 /HPF (0-FEW) Urine Mucus Mod /LPF White Blood Count 15.7 x10^3/uL (4.0-11.0) 14.1 x10^3/uL (4.0-11.0) Red Blood Count 4.61 x10^6/uL (3.50-5.40) 4.13 x10^6/uL (3.50-5.40) Hemoglobin 13.4 g/dL (12.0-15.5) 12.1 g/dL (12.0-15.5) Hematocrit 40.7 % (36.0-47.0) 36.8 % (36.0-47.0) Mean Corpuscular Volume 88 fL (79-100) 89 fL (79-100) Mean Corpuscular Hemoglobin 29 pg (25-35) 29 pg (25-35) Mean Corpuscular Hemoglobin Concent 33 g/dL (31-37) 33 g/dL (31-37) Red Cell Distribution Width 13.1 % (11.5-14.5) 13.0 % (11.5-14.5) Platelet Count 329 x10^3/uL (140-400) 279 x10^3/uL (140-400) Neutrophils (%) (Auto) 80 % (31-73) 76 % (31-73) Lymphocytes (%) (Auto) 12 % (24-48) 14 % (24-48) Monocytes (%) (Auto) 6 % (0-9) 8 % (0-9) Eosinophils (%) (Auto) 1 % (0-3) 1 % (0-3) Basophils (%) (Auto) 0 % (0-3) 0 % (0-3) Neutrophils # (Auto) 12.6 x10^3uL (1.8-7.7) 10.8 x10^3uL (1.8-7.7) Lymphocytes # (Auto) 1.9 x10^3/uL (1.0-4.8) 2.0 x10^3/uL (1.0-4.8) Monocytes # (Auto) 1.0 x10^3/uL (0.0-1.1) 1.1 x10^3/uL (0.0-1.1) Eosinophils # (Auto) 0.2 x10^3/uL (0.0-0.7) 0.2 x10^3/uL (0.0-0.7) Basophils # (Auto) 0.1 x10^3/uL (0.0-0.2) 0.1 x10^3/uL (0.0-0.2) Segmented Neutrophils % 79 % (35-66) Lymphocytes % 11 % (24-48) Monocytes % 9 % (0-10) Eosinophils % 1 % (0-5) Platelet Estimate Adequate (ADEQUATE) Sodium Level 144 mmol/L (136-145) 142 mmol/L (136-145) Potassium Level 3.9 mmol/L (3.5-5.1) 3.7 mmol/L (3.5-5.1) Chloride Level 105 mmol/L (98-107) 106 mmol/L (98-107) Carbon Dioxide Level 29 mmol/L (21-32) 26 mmol/L (21-32) Anion Gap 10 (6-14) 10 (6-14) Blood Urea Nitrogen 15 mg/dL (7-20) 14 mg/dL (7-20) Creatinine 1.0 mg/dL (0.6-1.0) 1.1 mg/dL (0.6-1.0) Estimated GFR (Cockcroft-Gault) 65.6 58.7 BUN/Creatinine Ratio 15 (6-20) Glucose Level 104 mg/dL (70-99) 98 mg/dL (70-99) Lactic Acid Level 1.1 mmol/L (0.4-2.0) Calcium Level 8.7 mg/dL (8.5-10.1) 8.0 mg/dL (8.5-10.1) Total Bilirubin 0.4 mg/dL (0.2-1.0) Aspartate Amino Transf (AST/SGOT) 20 U/L (15-37) Alanine Aminotransferase (ALT/SGPT) 29 U/L (14-59) Alkaline Phosphatase 72 U/L (46-116) Total Protein 7.8 g/dL (6.4-8.2) Albumin 3.9 g/dL (3.4-5.0) Albumin/Globulin Ratio 1.0 (1.0-1.7) Lipase 110 U/L (73-393) Review of Systems Review of Systems pain, nausea poor po intake LLQ pain, 8/10, req. IV pain meds Assessment and Plan Assessmemt and Plan Problems Medical Problems: (1) Abdominal pain, left lower quadrant Status: Acute (2) Intraabdominal mass Status: Acute (3) Leukocytosis Status: Acute Problems: Comment Review of Relevant I have reviewed the following items noé (where applicable) has been applied. Labs Laboratory Tests Test 03/23/17 14:46 03/23/17 15:30 03/23/17 15:50 03/24/17 05:20 Bedside Urine HCG, Qualitative Hcg negative (Negative) Urine Collection Type Unknown Urine Color Yellow Urine Clarity Clear Urine pH 7.0 Urine Specific [place] 1.020 Urine Protein Negative mg/dL (NEG-TRACE) Urine Glucose (UA) Negative mg/dL (NEG) Urine Ketones (Stick) Negative mg/dL (NEG) Urine Blood Negative (NEG) Urine Nitrite Negative (NEG) Urine Bilirubin Negative (NEG) Urine Urobilinogen Dipstick 0.2 mg/dL (0.2 mg/dL) Urine Leukocyte Esterase Negative (NEG) Urine RBC 0 /HPF (0-2) Urine WBC Occ /HPF (0-4) Urine Squamous Epithelial Cells Few /LPF Urine Bacteria 0 /HPF (0-FEW) Urine Mucus Mod /LPF White Blood Count 15.7 x10^3/uL (4.0-11.0) 14.1 x10^3/uL (4.0-11.0) Red Blood Count 4.61 x10^6/uL (3.50-5.40) 4.13 x10^6/uL (3.50-5.40) Hemoglobin 13.4 g/dL (12.0-15.5) 12.1 g/dL (12.0-15.5) Hematocrit 40.7 % (36.0-47.0) 36.8 % (36.0-47.0) Mean Corpuscular Volume 88 fL (79-100) 89 fL (79-100) Mean Corpuscular Hemoglobin 29 pg (25-35) 29 pg (25-35) Mean Corpuscular Hemoglobin Concent 33 g/dL (31-37) 33 g/dL (31-37) Red Cell Distribution Width 13.1 % (11.5-14.5) 13.0 % (11.5-14.5) Platelet Count 329 x10^3/uL (140-400) 279 x10^3/uL (140-400) Neutrophils (%) (Auto) 80 % (31-73) 76 % (31-73) Lymphocytes (%) (Auto) 12 % (24-48) 14 % (24-48) Monocytes (%) (Auto) 6 % (0-9) 8 % (0-9) Eosinophils (%) (Auto) 1 % (0-3) 1 % (0-3) Basophils (%) (Auto) 0 % (0-3) 0 % (0-3) Neutrophils # (Auto) 12.6 x10^3uL (1.8-7.7) 10.8 x10^3uL (1.8-7.7) Lymphocytes # (Auto) 1.9 x10^3/uL (1.0-4.8) 2.0 x10^3/uL (1.0-4.8) Monocytes # (Auto) 1.0 x10^3/uL (0.0-1.1) 1.1 x10^3/uL (0.0-1.1) Eosinophils # (Auto) 0.2 x10^3/uL (0.0-0.7) 0.2 x10^3/uL (0.0-0.7) Basophils # (Auto) 0.1 x10^3/uL (0.0-0.2) 0.1 x10^3/uL (0.0-0.2) Segmented Neutrophils % 79 % (35-66) Lymphocytes % 11 % (24-48) Monocytes % 9 % (0-10) Eosinophils % 1 % (0-5) Platelet Estimate Adequate (ADEQUATE) Sodium Level 144 mmol/L (136-145) 142 mmol/L (136-145) Potassium Level 3.9 mmol/L (3.5-5.1) 3.7 mmol/L (3.5-5.1) Chloride Level 105 mmol/L (98-107) 106 mmol/L (98-107) Carbon Dioxide Level 29 mmol/L (21-32) 26 mmol/L (21-32) Anion Gap 10 (6-14) 10 (6-14) Blood Urea Nitrogen 15 mg/dL (7-20) 14 mg/dL (7-20) Creatinine 1.0 mg/dL (0.6-1.0) 1.1 mg/dL (0.6-1.0) Estimated GFR (Cockcroft-Gault) 65.6 58.7 BUN/Creatinine Ratio 15 (6-20) Glucose Level 104 mg/dL (70-99) 98 mg/dL (70-99) Lactic Acid Level 1.1 mmol/L (0.4-2.0) Calcium Level 8.7 mg/dL (8.5-10.1) 8.0 mg/dL (8.5-10.1) Total Bilirubin 0.4 mg/dL (0.2-1.0) Aspartate Amino Transf (AST/SGOT) 20 U/L (15-37) Alanine Aminotransferase (ALT/SGPT) 29 U/L (14-59) Alkaline Phosphatase 72 U/L (46-116) Total Protein 7.8 g/dL (6.4-8.2) Albumin 3.9 g/dL (3.4-5.0) Albumin/Globulin Ratio 1.0 (1.0-1.7) Lipase 110 U/L (73-393) Laboratory Tests Test 03/23/17 14:46 03/23/17 15:30 03/23/17 15:50 03/24/17 05:20 Bedside Urine HCG, Qualitative Hcg negative (Negative) Urine Collection Type Unknown Urine Color Yellow Urine Clarity Clear Urine pH 7.0 Urine Specific [place] 1.020 Urine Protein Negative mg/dL (NEG-TRACE) Urine Glucose (UA) Negative mg/dL (NEG) Urine Ketones (Stick) Negative mg/dL (NEG) Urine Blood Negative (NEG) Urine Nitrite Negative (NEG) Urine Bilirubin Negative (NEG) Urine Urobilinogen Dipstick 0.2 mg/dL (0.2 mg/dL) Urine Leukocyte Esterase Negative (NEG) Urine RBC 0 /HPF (0-2) Urine WBC Occ /HPF (0-4) Urine Squamous Epithelial Cells Few /LPF Urine Bacteria 0 /HPF (0-FEW) Urine Mucus Mod /LPF White Blood Count 15.7 x10^3/uL (4.0-11.0) 14.1 x10^3/uL (4.0-11.0) Red Blood Count 4.61 x10^6/uL (3.50-5.40) 4.13 x10^6/uL (3.50-5.40) Hemoglobin 13.4 g/dL (12.0-15.5) 12.1 g/dL (12.0-15.5) Hematocrit 40.7 % (36.0-47.0) 36.8 % (36.0-47.0) Mean Corpuscular Volume 88 fL (79-100) 89 fL (79-100) Mean Corpuscular Hemoglobin 29 pg (25-35) 29 pg (25-35) Mean Corpuscular Hemoglobin Concent 33 g/dL (31-37) 33 g/dL (31-37) Red Cell Distribution Width 13.1 % (11.5-14.5) 13.0 % (11.5-14.5) Platelet Count 329 x10^3/uL (140-400) 279 x10^3/uL (140-400) Neutrophils (%) (Auto) 80 % (31-73) 76 % (31-73) Lymphocytes (%) (Auto) 12 % (24-48) 14 % (24-48) Monocytes (%) (Auto) 6 % (0-9) 8 % (0-9) Eosinophils (%) (Auto) 1 % (0-3) 1 % (0-3) Basophils (%) (Auto) 0 % (0-3) 0 % (0-3) Neutrophils # (Auto) 12.6 x10^3uL (1.8-7.7) 10.8 x10^3uL (1.8-7.7) Lymphocytes # (Auto) 1.9 x10^3/uL (1.0-4.8) 2.0 x10^3/uL (1.0-4.8) Monocytes # (Auto) 1.0 x10^3/uL (0.0-1.1) 1.1 x10^3/uL (0.0-1.1) Eosinophils # (Auto) 0.2 x10^3/uL (0.0-0.7) 0.2 x10^3/uL (0.0-0.7) Basophils # (Auto) 0.1 x10^3/uL (0.0-0.2) 0.1 x10^3/uL (0.0-0.2) Segmented Neutrophils % 79 % (35-66) Lymphocytes % 11 % (24-48) Monocytes % 9 % (0-10) Eosinophils % 1 % (0-5) Platelet Estimate Adequate (ADEQUATE) Sodium Level 144 mmol/L (136-145) 142 mmol/L (136-145) Potassium Level 3.9 mmol/L (3.5-5.1) 3.7 mmol/L (3.5-5.1) Chloride Level 105 mmol/L (98-107) 106 mmol/L (98-107) Carbon Dioxide Level 29 mmol/L (21-32) 26 mmol/L (21-32) Anion Gap 10 (6-14) 10 (6-14) Blood Urea Nitrogen 15 mg/dL (7-20) 14 mg/dL (7-20) Creatinine 1.0 mg/dL (0.6-1.0) 1.1 mg/dL (0.6-1.0) Estimated GFR (Cockcroft-Gault) 65.6 58.7 BUN/Creatinine Ratio 15 (6-20) Glucose Level 104 mg/dL (70-99) 98 mg/dL (70-99) Lactic Acid Level 1.1 mmol/L (0.4-2.0) Calcium Level 8.7 mg/dL (8.5-10.1) 8.0 mg/dL (8.5-10.1) Total Bilirubin 0.4 mg/dL (0.2-1.0) Aspartate Amino Transf (AST/SGOT) 20 U/L (15-37) Alanine Aminotransferase (ALT/SGPT) 29 U/L (14-59) Alkaline Phosphatase 72 U/L (46-116) Total Protein 7.8 g/dL (6.4-8.2) Albumin 3.9 g/dL (3.4-5.0) Albumin/Globulin Ratio 1.0 (1.0-1.7) Lipase 110 U/L (73-393) Medications Current Medications Hydromorphone HCl (Dilaudid) 1 mg PRN Q15MIN PRN IV/SQ PAIN GREATER THAN 3/10 Last administered on 03/23/17 17:32; Start 03/23/17 at 15:30; Stop 03/23/17 at 20:00; Status DC Sodium Chloride 1,000 ml @ 1,000 mls/hr Q1H IV Last administered on 03/23/17 15:58; Start 03/23/17 at 15:30; Stop 03/23/17 at 16:29; Status DC Sodium Chloride (Normal Saline Flush) 10 ml QSHIFT PRN IV AFTER MEDS AND BLOOD DRAWS Last administered on 03/23/17 15:58; Start 03/23/17 at 15:30 Ondansetron HCl (Zofran) 4 mg 1X ONCE IV Last administered on 03/23/17 15:58 ; Start 03/23/17 at 15:30; Stop 03/23/17 at 15:33; Status DC Ondansetron HCl (Zofran) 4 mg PRN Q8HRS PRN IV NAUSEA/VOMITING Last administered on 03/24/17 08:58; Start 03/23/17 at 17:30; Stop 03/24/17 at 17:29 Fentanyl Citrate (Fentanyl 2ml Vial) 50 mcg PRN Q2HR PRN IV PAIN Last administered on 03/23/17 18:37; Start 03/23/17 at 17:30; Stop 03/23/17 at 20:00 ; Status DC Sodium Chloride 1,000 ml @ 100 mls/hr Q10H IV Last administered on 03/23/17 18:45; Start 03/23/17 at 17:30; Stop 03/24/17 at 17:29 Hydromorphone HCl (Dilaudid) 1 mg PRN Q1HR PRN IV/SQ PAIN GREATER THAN 4/10 Last administered on 03/23/17 21:55; Start 03/23/17 at 20:00; Stop 03/24/17 at 00:00; Status DC Piperacillin Sod/ Tazobactam Sod 3.375 gm/Sodium Chloride 50 ml @ 100 mls/hr Q6HRS IV Last administered on 03/24/17 05:23; Start 03/23/17 at 20:30 Albuterol Sulfate (Ventolin Hfa) 2 puff Q4HRS INH ; Start 03/24/17 at 00:00; Status UNV Levothyroxine Sodium (Synthroid) 25 mcg DAILYAC PO Last administered on 08:28; Start 03/24/17 at 07:30 Albuterol Sulfate (Ventolin Neb Soln) 2.5 mg Q4HRS W/A NEB Last administered on 03/24/17 07:29; Start 03/23/17 at 22:00 Hydromorphone HCl (Dilaudid) 0.5 mg PRN Q2HRS PRN IV SEVERE PAIN Last administered on 03/24/17 08:58; Start 03/23/17 at 22:15 Prochlorperazine Edisylate (Compazine) 5 mg PRN Q6HRS PRN IV NAUSEA/VOMITING Last administered on 03/24/17 02:49; Start 03/23/17 at 22:15 Hydromorphone HCl (Dilaudid) 0.5 mg 1X ONCE IM ; Start 03/24/17 at 04:30; Stop 03/24/17 at 04:31; Status DC Active Scripts Active Reported Percocet 7.5-325 Mg Tablet (Oxycodone/Acetaminophen) 1 Each Tablet 1-2 Tab PO Q4HRS Levothyroxine Sodium 25 Mcg Tablet 25 Mcg PO DAILYAC Albuterol Sulfate Hfa Inhaler (Albuterol Sulfate) 8.5 Gm Hfa.aer.ad 2 Puff INH Q4HRS Zofran (Ondansetron Hcl) 4 Mg Tablet 1 Tab PO Q6HRS Vitals/I & O Vital Sign - Last 24 Hours 03/23/17 03/23/17 03/23/17 03/23/17 15:20 15:59 16:01 16:31 Temp 98.4 98.4 Pulse 92 75 69 Resp 18 B/P (MAP) 128/83 (98) 109/63 (78) 107/61 (76) Pulse Ox 98 97 O2 Delivery Room Air Room Air Room Air 03/23/17 03/23/17 03/23/17 03/23/17 16:53 17:01 17:30 17:32 Pulse 65 79 Resp 16 B/P (MAP) 114/76 (89) 114/81 (92) Pulse Ox 98 98 99 O2 Delivery Room Air Room Air Room Air Room Air 03/23/17 03/23/17 03/23/17 03/23/17 17:51 18:02 18:02 18:37 Pulse 63 Resp 16 B/P (MAP) 113/67 (82) Pulse Ox 94 94 O2 Delivery Room Air Room Air 03/23/17 03/23/17 03/23/17 03/23/17 19:07 20:00 20:11 21:55 Resp 18 18 16 Pulse Ox 94 94 94 O2 Delivery Room Air Room Air 03/23/17 03/23/17 03/24/17 03/24/17 22:25 23:00 00:01 00:06 Temp 98.1 98.1 Pulse 91 Resp 19 18 18 B/P (MAP) 136/84 (101) Pulse Ox 94 100 94 O2 Delivery Room Air Room Air Room Air 03/24/17 03/24/17 03/24/17 03/24/17 00:15 00:17 02:49 03:00 Temp 98.4 98.1 98.4 98.1 Pulse 63 87 Resp 18 B/P (MAP) 113/67 (82) 117/89 (98) Pulse Ox 96 96 96 97 O2 Delivery Room Air Room Air Room Air Room Air 03/24/17 03/24/17 03/24/17 03/24/17 03:19 04:06 04:36 06:57 Resp 18 Pulse Ox 96 96 96 O2 Delivery Room Air Room Air Room Air 03/24/17 03/24/17 03/24/17 07:00 07:00 07:29 Temp 98.2 98.2 Pulse 59 Resp 19 B/P (MAP) 99/54 (69) 96/57 (70) Pulse Ox 97 O2 Delivery Room Air Room Air Intake and Output 03/23/17 03/23/17 03/24/17 15:00 23:00 07:00 Intake Total 1000 ml 100 ml Balance 1000 ml 100 ml VAMSI GUPTA MD Mar 24, 2017 11:06
[2017-03-24] MEDS ORDERED: oxyCODONE/APAP 7.5/325 1 TAB TABLET PO PRN (11:15)
[2017-03-24 15:00] VITALS: BP 105/64
--- NOTE | 2017-04-02 15:47 | PDOC3 ---
Discharge Summary Visit Information Date of Admission: Mar 23, 2017 Date of Discharge: Mar 24, 2017 Admitting Diagnosis: abd pain Final Diagnosis leukocytosis pelvic pain hydronephrosis on CT scan CT scan completed at [facility] on 03/23/2017 demonstrates there is left hydroureter again seen is a left pelvic mass measuring 4.3 x 3.8 cm this is increased in size from the prior study in cause compression of the left ureter dizzy of the masses indeterminate range from anywhere from 12-20 Hounsfield units dizzy of the mass no bowel obstruction no. Pneumoperitoneum normal appendix no bulky adenopathy. This is a left adnexal mass is increased in size placing mass effect on the left ureter causing left hydroureter nephrosis Medical Problems: (1) Abdominal pain, left lower quadrant Status: Acute (2) Intraabdominal mass Status: Acute (3) Leukocytosis Status: Acute Brief Hospital Course Allergies Allergies Coded Allergies Type Severity Reaction Last Updated Verified Iodine and Iodide Containing Produc Allergy Severe THROAT CLOSED UP 01/08/17 Yes Latex, Natural Rubber Allergy Intermediate RASH AND ITCHING 01/08/17 Yes adhesive Allergy Intermediate Rash FROM TAPE 01/08/17 Yes ketorolac Allergy Intermediate Itching 01/08/17 Yes tramadol Allergy Intermediate itchy rash, tolerates Morphine/Dilaudid/Lortab Yes cyclobenzaprine Adverse Reaction Mild IRRITABLE 01/08/17 Yes promethazine Adverse Reaction Mild fast heart rate 01/08/17 No Brief Hospital Course Ms. Merlos is a 27 old admit with abd pain, s/p recent surg by Home Delivery Driver some mass seen on CT scan, poss hydro on left side, pain persisted. Home Delivery Driver and gen surg consulted, and would f/u outpatient, no urgent need for surg, DC home, f/u PCP 2 weeks Discharge Information Condition at Discharge: Stable Follow Up: Weeks Disposition/Orders: D/C to Home Scheduled Albuterol Sulfate (Albuterol Sulfate Hfa Inhaler), 2 PUFF INH Q4HRS, (Reported) Levothyroxine Sodium (Levothyroxine Sodium), 25 MCG PO DAILYAC, (Reported) Ondansetron Hcl (Zofran), 1 TAB PO Q6HRS, (Reported) Oxycodone/Apap 7.5-325 (Percocet 7.5-325 Mg Tablet), 1-2 TAB PO Q4HRS, (Reported ) Patient Instructions Patient Instructions < 30 min VAMSI GUPTA MD Apr 02, 2017 15:47
== END 2017-03-24 17:53 | disposition home or self-care (01) | DRG 392 ==
LOC: ER 15:14 → 5 NORTH 17:42
PROVIDERS: ADMIT Internal Medicine Hematology & Oncology; ATTEND Internal Medicine Hematology & Oncology
DX: R19.00 Intra-abdominal and pelvic swelling, mass and lump, unspecified site (principal); N13.30 Unspecified hydronephrosis; R10.2 Pelvic and perineal pain; F41.9 Anxiety disorder, unspecified; E03.9 Hypothyroidism, unspecified; K21.9 Gastro-esophageal reflux disease without esophagitis; D72.829 Elevated white blood cell count, unspecified; K66.8 Other specified disorders of peritoneum; E66.9 Obesity, unspecified; Z87.891 Personal history of nicotine dependence; Z90.710 Acquired absence of both cervix and uterus; Z83.3 Family history of diabetes mellitus; Z90.49 Acquired absence of other specified parts of digestive tract; Z90.721 Acquired absence of ovaries, unilateral; Z88.9 Allergy status to unspecified drugs, medicaments and biological substances; Z91.041 Radiographic dye allergy status; Z91.040 Latex allergy status; Z88.8 Allergy status to other drugs, medicaments and biological substances; Z91.048 Other nonmedicinal substance allergy status; Z68.35 Body mass index [BMI] 35.0-35.9, adult; Z98.51 Tubal ligation status
CPT/HCPCS: 36415; 80048; 80053; 81001; 81025; 83605; 83690; 85007; 85027; 87040; 93005; 94640; 96361; 96374; 96375; J0780; J1170; J2405; J2543; J3010; J7030; J7613; 99285-25

== ENCOUNTER → 2017-04-04 | Day surgery (SDC) | payer OTHER ==
[~2017-04-04] VITALS: Ht 157.5 cm; Wt 90.7 kg
[~2017-04-04] MED LIST changes: +HYDROmorphone 2 MG/ML VIAL IV PRN; +IV RINGERS,LACTATED 1000ML 1,000 ML IV SCH; +LIDOCAINE 1% 1 ML SYRINGE. ID PRN; +MORPHINE SULFATE 2 MG/ML DISP.SYRIN. IV PRN; +ONDANSETRON PF 4 MG/2 ML VIAL. IV PRN; +fentaNYL PF VIAL 100 MCG/2 ML VIAL IV PRN
[2017-04-04 10:10] VITALS: BP 139/75
[2017-04-04 10:33] LABS: BASO # 0.1 x10^3/uL (0.0-0.2); BASO % 1 % (0-3); EOS % 7 % (0-3); HEMATOCRIT 39.6 % (36.0-47.0); HEMOGLOBIN 13.6 g/dL (12.0-15.5); LYMPH # 2.9 x10^3/uL (1.0-4.8); LYMPH % 28 % (24-48); MEAN CORPUSCULAR HEMOGLOBIN 30 pg (25-35); MEAN CORPUSCULAR HGB CONC 34 g/dL (31-37); MEAN CORPUSCULAR VOLUME 87 fL (79-100); MONO % 6 % (0-9); NEUT % 59 % (31-73); PLATELET COUNT 360 x10^3/uL (140-400); RED BLOOD COUNT 4.56 x10^6/uL (3.50-5.40); RED CELL DISTRIBUTION WIDTH 13.1 % (11.5-14.5); WHITE BLOOD COUNT 10.7 x10^3/uL (4.0-11.0)
[2017-04-04 10:49] LABS: ALBUMIN 3.5 g/dL (3.4-5.0); CALCIUM 8.6 mg/dL (8.5-10.1); CREATININE 0.8 mg/dL (0.6-1.0); GFR 84.8; POTASSIUM 3.9 mmol/L (3.5-5.1)
--- NOTE | 2017-04-04 11:36 | RAD ---
Pelvic ultrasound, 04/04/2017: History: Left pelvic mass Transabdominal and transvaginal scans were obtained. The uterus and ovaries are surgically absent. The visualized heterogeneous pelvic structures are compatible with bowel. The right pelvic mass seen on the ultrasound study of 12/20/2016 is not currently visualized. The left pelvic cystic structure seen on the outside CT scan of 03/23/2017 is also not currently visualized. This may be due to obscuration by overlying bowel. No cystic or solid pelvic mass is currently seen. Limited views of the left kidney do not currently demonstrate hydronephrosis. IMPRESSION: Nonvisualization of the patient's known left pelvic mass, likely due to obscuration by overlying bowel.
--- NOTE | 2017-04-04 12:27 | RAD ---
CT pelvis without contrast April 04, 2017 Clinical indication: Left adnexal mass follow-up. Comparison: Same day pelvic ultrasound and CT abdomen and pelvis 03/23/2017. Technique: CT helical acquisition of the pelvis was obtained without intravenous contrast according to standard protocol. Coronal and sagittal reformations were obtained. PQRS Compliance Statement: One or more of the following individualized dose reduction techniques were utilized for this examination: 1. Automated exposure control 2. Adjustment of the mA and/or kV according to patient size 3. Use of iterative reconstruction technique Findings: Pelvis: Interval decrease in left pelvic sidewall fluid collection which is now elongated measuring 2.4 x 1.4 cm (series 2/image 28), previously 4.5 x 4.1 cm. Prior hysterectomy with the vaginal cuff unremarkable. Minimally distended and unopacified urinary bladder within normal limits. Visualized small and large bowel loops are normal in caliber without obstruction. Appendix normal in appearance. There are no destructive osseous lesions. Impression: Status post hysterectomy and bilateral salpingo-oophorectomy with improvement in left pelvic side wall fluid collection measuring up to 2.4 cm, previously 4.5 cm. Sterilely cannot be assessed by CT.
== END | disposition home or self-care (01) ==
LOC: SURG 09:44 → EDSTATUS 11:45
PROVIDERS: ATTEND Surgery
DX: R19.09 Other intra-abdominal and pelvic swelling, mass and lump (principal); E78.00 Pure hypercholesterolemia, unspecified; J45.909 Unspecified asthma, uncomplicated; E66.9 Obesity, unspecified; E11.9 Type 2 diabetes mellitus without complications; E03.9 Hypothyroidism, unspecified; F41.9 Anxiety disorder, unspecified; F32.9 Major depressive disorder, single episode, unspecified; Z90.49 Acquired absence of other specified parts of digestive tract; Z98.51 Tubal ligation status; Z68.29 Body mass index [BMI] 29.0-29.9, adult; Z90.710 Acquired absence of both cervix and uterus; Z72.0 Tobacco use; Z91.041 Radiographic dye allergy status; Z91.040 Latex allergy status; Z91.048 Other nonmedicinal substance allergy status
CPT/HCPCS: 36415; 72192; 76830; 76856; 80048; 82040; 85027; J0694